=== PATIENT | female | born 1955 | race Caucasian/White ===

== ENCOUNTER 2020-11-06 01:57 | Inpatient (IN) | payer MEDICARE ==
[2020-11-06] MEDS ORDERED: Morphine 4 MG/ML VIAL ONE (02:14)
[2020-11-06 02:51] LABS: #Eosinphils 0.1 thou/uL (0.0-0.7); #Lymphocytes 1.9 thou/uL (1.20-3.40); #Monocytes 0.5 thou/uL (0.11-0.59); #Neutrophils 5.9 thou/uL (1.40-6.50); %Basophils 0.1 % (0.0-1.0); %Eosinophils 1.2 % (0.0-10.0); %Lymphocytes 21.9 % (21.0-51.0); %Monocytes 6.4 % (0.0-10.0); %Neutrophils 70.4 % (42.0-75.0); Mean Corpuscular HGB CONC 33.1 g/dL (32.0-36.0); Mean Corpuscular Hemoglobin 27.4 pg (27.0-31.0); Mean Corpuscular Volume 82.8 fL (78.0-98.0); Mean Platelet Volume 7.6 fL (7.4-10.4); Platelet Count 251 thou/uL (130-400); RBC Distribution Width 15.8 % (11.5-14.5); Red Blood Cell (RBC) Count 4.37 mill/uL (4.20-5.40); White Blood Cell (WBC) Count 8.4 thou/uL (4.8-10.8)
[2020-11-06 03:11] LABS: ALT (SGPT) 16 U/L (8-55); AST (SGOT) 11 U/L (5-34); Albumin 3.9 g/dL (3.4-4.8); Alkaline Phosphatase 77 U/L (40-110); Anion Gap 16 mmol/L (10-20); BUN (Urea Nitrogen) 19 mg/dL (9.8-20.1); Bilirubin, Total 0.6 mg/dL (0.2-1.2); CK (CPK) 39 U/L (29-168); Calc. Creatinine Clearance 0 mL/min (70-130); Calcium 9.4 mg/dL (7.8-10.44); Carbon Dioxide 20 mmol/L (23-31); Chloride 103 mmol/L (98-107); Glucose 194 mg/dL (80-115); Lipase 10 U/L (8-78); Potassium 3.1 mmol/L (3.5-5.1); Protein, Total 6.9 g/dL (5.8-8.1); Sodium 136 mmol/L (136-145)
[2020-11-06 03:33] LABS: CKMB 1.8 ng/mL (0-6.6)
[2020-11-06 07:06] LABS: Troponin I 0.281 ng/mL (< 0.028)
[2020-11-06] MEDS ORDERED: Guaifenesin DM 100-10/5 ML UDCUP PO PRN (08:46)
[2020-11-06] MEDS ORDERED: Ondansetron PF 4 MG/2 ML Vial IVP PRN (08:46)
[2020-11-06] MEDS ORDERED: Dextrose 5% in Water 1,000 ML IV PRN (08:46)
[2020-11-06] MEDS ORDERED: Dextrose 50% Abboject 50 ML SYRINGE SLOW IVP PRN (08:46)
[2020-11-06] MEDS ORDERED: HumaLOG 300 UNITS/3 ML VIAL SC PRN ×2 (08:46)
[2020-11-06] MEDS ORDERED: Senokot S 8.6-50 MG TAB PO PRN (08:46)
[2020-11-06] MEDS ORDERED: Sodium Chloride 0.9% 1,000 ML IV SCH (08:46)
[2020-11-06] MEDS ORDERED: Aspirin 325 MG TAB PO SCH (08:46)
[2020-11-06] MEDS ORDERED: Calcium Carbonate 500 MG ChewTAB PO PRN (08:46)
[2020-11-06] MEDS ORDERED: Bisacodyl 10 MG SUPP PR PRN (08:46)
[2020-11-06] MEDS ORDERED: Ketorolac Tromethamine 30 MG/ML VIAL IVP PRN (08:46)
[2020-11-06] MEDS ORDERED: Iopamidol-370 76% 500 ML 1 ML ONE (09:20)
[2020-11-06] MEDS: NIFEdipine XL 30 MG TAB PO SCH (09:43)
[2020-11-06] MEDS: Pantoprazole 40 MG VIAL IVP SCH ×2 (09:43→20:21)
[2020-11-06] MEDS: Gabapentin 300 MG CAP PO SCH ×2 (09:44→20:18)
[2020-11-06 09:59] LABS: Hemoglobin A1c 6.3 % (4.0-6.0)
[2020-11-06] MEDS: Acetaminophen 325 MG TAB PO PRN ×2 (10:01→20:21)
[2020-11-06] MEDS: Enoxaparin Sodium 120 MG/0.8 ML SYRINGE SC SCH ×2 (10:04→20:22)
[2020-11-06 10:15] LABS: SARS-CoV-2 NAA Rapid Test Not Detected (NotDetected)
[2020-11-06] MEDS ORDERED: Potassium Chloride 20 MEQ TAB PO SCH (12:00)
[2020-11-06] MEDS: Lisinopril 10 MG TAB PO SCH (14:12)
[2020-11-06] MEDS: Nitroglycerin 2% Ointment 1 INCH/1 GM Packet TOP SCH ×2 (14:13→22:40)
[2020-11-06] MEDS: Rosuvastatin 20 MG TAB PO SCH (20:18)
[2020-11-06] MEDS: Montelukast Sodium 10 mg Tablet PO SCH (20:18)
[2020-11-06] MEDS: diphenhydrAMINE 25 MG CAP PO PRN (22:40)
[2020-11-07] MEDS: Acetaminophen 325 MG TAB PO PRN ×3 (04:11→21:20)
[2020-11-07 05:51] LABS: #Basophils 0.1 thou/uL (0.0-0.2); #Eosinphils 0.1 thou/uL (0.0-0.7); #Lymphocytes 1.9 thou/uL (1.20-3.40); #Monocytes 0.4 thou/uL (0.11-0.59); #Neutrophils 5.1 thou/uL (1.40-6.50); %Basophils 0.7 % (0.0-1.0); %Eosinophils 1.9 % (0.0-10.0); %Lymphocytes 25.4 % (21.0-51.0); %Monocytes 4.9 % (0.0-10.0); %Neutrophils 67.1 % (42.0-75.0); Mean Corpuscular HGB CONC 33.1 g/dL (32.0-36.0); Mean Corpuscular Hemoglobin 27.6 pg (27.0-31.0); Mean Corpuscular Volume 83.3 fL (78.0-98.0); Mean Platelet Volume 8.2 fL (7.4-10.4); Platelet Count 227 thou/uL (130-400); RBC Distribution Width 15.7 % (11.5-14.5); Red Blood Cell (RBC) Count 3.99 mill/uL (4.20-5.40); White Blood Cell (WBC) Count 7.6 thou/uL (4.8-10.8)
[2020-11-07 06:19] LABS: Anion Gap 11 mmol/L (10-20); BUN (Urea Nitrogen) 11 mg/dL (9.8-20.1); Calc. Creatinine Clearance 192 mL/min (70-130); Calcium 9.3 mg/dL (7.8-10.44); Carbon Dioxide 26 mmol/L (23-31); Cardiac Risk 5.2 (Less than 4.5); Chloride 106 mmol/L (98-107); Cholesterol 125 mg/dl (< 200 Desired); Glucose 168 mg/dL (80-115); HDL Cholesterol 24 mg/dL (>60 Neg Risk); LDL Cholesterol, Calculated 67 mg/dL; Potassium 3.8 mmol/L (3.5-5.1); Sodium 139 mmol/L (136-145); Triglycerides 168 mg/dL (Less than 150)
[2020-11-07] MEDS: Nitroglycerin 2% Ointment 1 INCH/1 GM Packet TOP SCH ×3 (06:45→21:21)
[2020-11-07 06:49] LABS: CKMB 118.1 ng/mL (0-6.6)
[2020-11-07] MEDS ORDERED: Communication Order-Pharmacy FS SCH (08:30)
[2020-11-07] MEDS: NIFEdipine XL 30 MG TAB PO SCH (08:44)
[2020-11-07] MEDS: Aspirin Chewable 81 MG TAB PO SCH (08:56)
[2020-11-07] MEDS: Gabapentin 300 MG CAP PO SCH ×2 (08:57→20:38)
[2020-11-07] MEDS: Lisinopril 10 MG TAB PO SCH (08:57)
[2020-11-07] MEDS: Pantoprazole 40 MG VIAL IVP SCH ×2 (08:58→20:40)
[2020-11-07] MEDS ORDERED: Midazolam HCl 2 mg/2 ml Vial ONE ×2 (09:13→09:33)
[2020-11-07] MEDS ORDERED: Fentanyl 100 MCG/2 ML VIAL ONE ×5 (09:13→14:51)
[2020-11-07] MEDS ORDERED: Heparin 10,000 UNITS/ 10 ML VIAL ONE ×2 (09:41→09:59)
[2020-11-07] MEDS ORDERED: Nitroglycerin 100MG/250ML BOT 250 ML ONE (09:59)
[2020-11-07] MEDS ORDERED: TICAGRELOR 90 MG TABLET ONE (10:32)
[2020-11-07] MEDS ORDERED: TICAGRELOR 90 MG TABLET PO SCH (11:00)
[2020-11-07] MEDS ORDERED: Fentanyl 100 MCG/2 ML VIAL SLOW IVP PRN (11:56)
[2020-11-07] MEDS ORDERED: Nitroglycerin 2% Ointment 1 INCH/1 GM Packet ONE (12:29)
[2020-11-07] MEDS ORDERED: Iopamidol 370 76% 100 ML VIAL ONE (15:06)
[2020-11-07] MEDS ORDERED: Iopamidol 370 76% 50 ML VIAL FS ONE (15:06)
[2020-11-07] MEDS: diphenhydrAMINE 25 MG CAP PO PRN ×2 (15:35→20:38)
[2020-11-07] MEDS ORDERED: Ketorolac Tromethamine 30 MG/ML VIAL IVP SCH (18:15)
[2020-11-07] MEDS: Metoprolol Tartrate 25 MG TAB PO SCH (20:38)
[2020-11-07] MEDS: Rosuvastatin 20 MG TAB PO SCH (20:38)
[2020-11-07] MEDS: Montelukast Sodium 10 mg Tablet PO SCH (20:38)
[2020-11-07] MEDS: TICAGRELOR 90 MG TABLET PO SCH (21:21)
[2020-11-08] MEDS: Acetaminophen 325 MG TAB PO PRN ×2 (02:07→08:46)
[2020-11-08 05:10] LABS: #Eosinphils 0.1 thou/uL (0.0-0.7); #Lymphocytes 1.6 thou/uL (1.20-3.40); #Monocytes 0.3 thou/uL (0.11-0.59); #Neutrophils 5.2 thou/uL (1.40-6.50); %Basophils 0.2 % (0.0-1.0); %Eosinophils 1.9 % (0.0-10.0); %Lymphocytes 21.4 % (21.0-51.0); %Monocytes 4.6 % (0.0-10.0); %Neutrophils 71.9 % (42.0-75.0); Hemoglobin 11.7 g/dL (12.0-16.0); Mean Corpuscular HGB CONC 33.1 g/dL (32.0-36.0); Mean Corpuscular Hemoglobin 27.7 pg (27.0-31.0); Mean Corpuscular Volume 83.6 fL (78.0-98.0); Mean Platelet Volume 7.8 fL (7.4-10.4); Platelet Count 240 thou/uL (130-400); RBC Distribution Width 15.8 % (11.5-14.5); Red Blood Cell (RBC) Count 4.23 mill/uL (4.20-5.40); White Blood Cell (WBC) Count 7.2 thou/uL (4.8-10.8)
[2020-11-08 05:32] LABS: ALT (SGPT) 19 U/L (8-55); AST (SGOT) 46 U/L (5-34); Albumin 3.7 g/dL (3.4-4.8); Alkaline Phosphatase 72 U/L (40-110); Anion Gap 11 mmol/L (10-20); BUN (Urea Nitrogen) 9 mg/dL (9.8-20.1); Bilirubin, Total 0.6 mg/dL (0.2-1.2); Calc. Creatinine Clearance 169 mL/min (70-130); Calcium 9.8 mg/dL (7.8-10.44); Carbon Dioxide 24 mmol/L (23-31); Chloride 106 mmol/L (98-107); Globulin 2.8 g/dL (2.4-3.5); Glucose 184 mg/dL (80-115); Potassium 3.6 mmol/L (3.5-5.1); Protein, Total 6.5 g/dL (5.8-8.1); Sodium 137 mmol/L (136-145)
[2020-11-08] MEDS: Nitroglycerin 2% Ointment 1 INCH/1 GM Packet TOP SCH ×2 (05:49→13:49)
[2020-11-08] MEDS: Metoprolol Tartrate 25 MG TAB PO SCH ×2 (08:45→20:48)
[2020-11-08] MEDS: TICAGRELOR 90 MG TABLET PO SCH ×2 (08:45→20:48)
[2020-11-08] MEDS: Gabapentin 300 MG CAP PO SCH ×2 (08:45→22:17)
[2020-11-08] MEDS: Pantoprazole 40 MG VIAL IVP SCH ×2 (08:46→20:48)
[2020-11-08] MEDS: Lisinopril 10 MG TAB PO SCH (08:46)
[2020-11-08] MEDS: Aspirin Chewable 81 MG TAB PO SCH (08:46)
[2020-11-08] MEDS: Carvedilol 3.125 MG TAB PO SCH ×2 (10:20→17:47)
[2020-11-08] MEDS: Loperamide HCl 1 MG/7.5 ML UDCUP PO PRN (13:49)
[2020-11-08 14:55] VITALS: BMI 48.9
[2020-11-08] MEDS: Acetaminophen/Codeine 30-300mg Tablet PO PRN (20:46)
[2020-11-08] MEDS: Montelukast Sodium 10 mg Tablet PO SCH (20:46)
[2020-11-08] MEDS: Rosuvastatin 20 MG TAB PO SCH (20:48)
[2020-11-08] MEDS ORDERED: Gabapentin 300 MG CAP PO SCH (21:30)
[2020-11-08] MEDS ORDERED: Melatonin 3 MG TAB PO SCH (22:45)
[2020-11-08] MEDS ORDERED: Nitroglycerin 2% Ointment 1 INCH/1 GM Packet TOP SCH (23:59)
[2020-11-08] MEDS ORDERED: Morphine 2 MG/ML VIAL SLOW IVP SCH (23:59)
[2020-11-09 04:56] LABS: #Eosinphils 0.2 thou/uL (0.0-0.7); #Lymphocytes 1.6 thou/uL (1.20-3.40); #Monocytes 0.4 thou/uL (0.11-0.59); #Neutrophils 5.8 thou/uL (1.40-6.50); %Basophils 0.5 % (0.0-1.0); %Eosinophils 1.9 % (0.0-10.0); %Lymphocytes 20.4 % (21.0-51.0); %Monocytes 4.8 % (0.0-10.0); %Neutrophils 72.4 % (42.0-75.0); Mean Corpuscular HGB CONC 33.8 g/dL (32.0-36.0); Mean Corpuscular Hemoglobin 28.2 pg (27.0-31.0); Mean Corpuscular Volume 83.5 fL (78.0-98.0); Mean Platelet Volume 8.1 fL (7.4-10.4); Platelet Count 225 thou/uL (130-400); RBC Distribution Width 15.6 % (11.5-14.5)
[2020-11-09 05:21] LABS: Anion Gap 12 mmol/L (10-20); BUN (Urea Nitrogen) 10 mg/dL (9.8-20.1); Calc. Creatinine Clearance 188 mL/min (70-130); Calcium 9.5 mg/dL (7.8-10.44); Carbon Dioxide 24 mmol/L (23-31); Chloride 107 mmol/L (98-107); Glucose 126 mg/dL (80-115); Potassium 3.8 mmol/L (3.5-5.1); Sodium 139 mmol/L (136-145)
[2020-11-09] MEDS: Acetaminophen 325 MG TAB PO PRN ×2 (07:51→19:25)
[2020-11-09] MEDS: Pantoprazole 40 MG VIAL IVP SCH ×2 (07:51→20:50)
[2020-11-09] MEDS: Carvedilol 3.125 MG TAB PO SCH ×2 (07:52→17:40)
[2020-11-09] MEDS: Gabapentin 300 MG CAP PO SCH ×2 (07:52→20:49)
[2020-11-09] MEDS: Lisinopril 10 MG TAB PO SCH (07:52)
[2020-11-09] MEDS: Metoprolol Tartrate 25 MG TAB PO SCH (07:53)
[2020-11-09] MEDS: TICAGRELOR 90 MG TABLET PO SCH (07:53)
[2020-11-09] MEDS: Aspirin Chewable 81 MG TAB PO SCH (07:55)
[2020-11-09] MEDS: ALPRAZolam 0.25 MG TAB PO PRN ×2 (10:38→21:05)
[2020-11-09] MEDS: Acetaminophen/Codeine 30-300mg Tablet PO PRN (12:23)
[2020-11-09] MEDS: Loperamide HCl 1 MG/7.5 ML UDCUP PO PRN (12:24)
[2020-11-09] MEDS ORDERED: Clopidogrel Bisulfate 300 MG TAB PO SCH (16:00)
[2020-11-09] MEDS: Rosuvastatin 20 MG TAB PO SCH (20:49)
[2020-11-09] MEDS: Montelukast Sodium 10 mg Tablet PO SCH (20:49)
[2020-11-09] MEDS: diphenhydrAMINE 25 MG CAP PO PRN (22:15)
[2020-11-10] MEDS: Acetaminophen 325 MG TAB PO PRN ×2 (01:03→12:54)
[2020-11-10] MEDS: Aspirin Chewable 81 MG TAB PO SCH (07:41)
[2020-11-10] MEDS: Pantoprazole 40 MG VIAL IVP SCH (07:41)
[2020-11-10] MEDS: Gabapentin 300 MG CAP PO SCH (07:41)
[2020-11-10] MEDS: Acetaminophen/Codeine 30-300mg Tablet PO PRN (07:42)
[2020-11-10] MEDS: Lisinopril 10 MG TAB PO SCH (07:43)
[2020-11-10] MEDS: Carvedilol 3.125 MG TAB PO SCH ×2 (07:43→16:52)
[2020-11-10] MEDS ORDERED: Clopidogrel Bisulfate 75 MG TAB PO SCH (09:00)
[2020-11-10] MEDS: ALPRAZolam 0.25 MG TAB PO PRN (12:54)
[2020-11-10 16:38] VITALS: BP 146/77; TEMP 98.2
[2020-11-10] MEDS ORDERED: Lisinopril 10 MG TAB PO SCH (21:00)
== END 2020-11-10 17:40 | disposition home or self-care (01) | DRG 247 ==
LOC: ERS 01:57 → 2SW 04:55 → OBSVTOIN 11-07 08:47
PROVIDERS: ADMIT Internal Medicine; ATTEND Internal Medicine
PROC: 027034Z Dilation of Coronary Artery, One Artery with Drug-eluting Intraluminal Device, Percutaneous Approach (ICD-10-PCS; principal; 2020-11-07)
PROC: 4A023N7 Measurement of Cardiac Sampling and Pressure, Left Heart, Percutaneous Approach (ICD-10-PCS; 2020-11-07)
PROC: B2111ZZ Fluoroscopy of Multiple Coronary Arteries using Low Osmolar Contrast (ICD-10-PCS; 2020-11-07)
PROC: B2151ZZ Fluoroscopy of Left Heart using Low Osmolar Contrast (ICD-10-PCS; 2020-11-07)
DX: I21.4 Non-ST elevation (NSTEMI) myocardial infarction (principal); Z68.42 Body mass index [BMI] 45.0-49.9, adult; I42.9 Cardiomyopathy, unspecified; I10 Essential (primary) hypertension; E78.5 Hyperlipidemia, unspecified; J44.9 Chronic obstructive pulmonary disease, unspecified; K21.9 Gastro-esophageal reflux disease without esophagitis; E87.6 Hypokalemia; I25.10 Atherosclerotic heart disease of native coronary artery without angina pectoris; J45.20 Mild intermittent asthma, uncomplicated; R51.9 Headache, unspecified; E66.01 Morbid (severe) obesity due to excess calories; Z20.822 Contact with and (suspected) exposure to COVID-19; E11.40 Type 2 diabetes mellitus with diabetic neuropathy, unspecified; Z98.51 Tubal ligation status; Z90.89 Acquired absence of other organs; Z79.82 Long term (current) use of aspirin; Z88.8 Allergy status to other drugs, medicaments and biological substances; Z87.891 Personal history of nicotine dependence; Z88.7 Allergy status to serum and vaccine; Z91.012 Allergy to eggs
CPT/HCPCS: 36415; 36416; 71045; 71275; 74174; 76705; 76942; 80048; 80053; 80061; 82550; 82553; 83036; 83690; 84484; 85025; 85347; 92941; 93005; 93010; 93306; 93458; 93798; 94640; 94760; 96372; 96374; 96375; 96376; 99152; 99153; C1874; C9113; C9606; G0378; J1644; J1650; J1885; J2250; J2270; J2405; J3010; J7620; Q0163; Q9967; U0002

== ENCOUNTER 2022-01-11 09:32 | Inpatient (IN) | payer MEDICARE ==
[2022-01-11] MEDS ORDERED: Iopamidol 370 76% 100 ML VIAL ONE (09:35)
[2022-01-11] MEDS ORDERED: Aspirin Chewable 81 MG TAB ONE (10:08)
[2022-01-11] MEDS ORDERED: Nitroglycerin 2% Ointment 1 INCH/1 GM Packet ONE (10:08)
[2022-01-11 10:35] LABS: #Eosinphils 0.3 thou/uL (0.0-0.7); #Lymphocytes 1.6 thou/uL (1.20-3.40); #Monocytes 0.4 thou/uL (0.11-0.59); #Neutrophils 4.2 thou/uL (1.40-6.50); %Basophils 0.5 % (0.0-1.0); %Eosinophils 5.3 % (0.0-10.0); %Lymphocytes 24.2 % (21.0-51.0); %Monocytes 5.4 % (0.0-10.0); %Neutrophils 64.5 % (42.0-75.0); Hemoglobin 12.1 g/dL (12.0-16.0); Mean Corpuscular HGB CONC 31.9 g/dL (32.0-36.0); Mean Corpuscular Hemoglobin 27.8 pg (27.0-31.0); Mean Corpuscular Volume 87.2 fL (78.0-98.0); Mean Platelet Volume 7.4 fL (7.4-10.4); Platelet Count 225 thou/uL (130-400); RBC Distribution Width 14.7 % (11.5-14.5); Red Blood Cell (RBC) Count 4.34 mill/uL (4.20-5.40); White Blood Cell (WBC) Count 6.4 thou/uL (4.8-10.8)
[2022-01-11 11:06] LABS: ALT (SGPT) 11 U/L (8-55); AST (SGOT) 11 U/L (5-34); Albumin 3.9 g/dL (3.4-4.8); Alkaline Phosphatase 71 U/L (40-110); Anion Gap 12 mmol/L (10-20); BUN (Urea Nitrogen) 10 mg/dL (9.8-20.1); Bilirubin, Total 0.8 mg/dL (0.2-1.2); CK (CPK) 27 U/L (29-168); Calc. Creatinine Clearance 0 mL/min (70-130); Calcium 9.7 mg/dL (7.8-10.44); Carbon Dioxide 25 mmol/L (23-31); Chloride 103 mmol/L (98-107); Globulin 2.7 g/dL (2.4-3.5); Glucose 165 mg/dL (80-115); Lipase 12 U/L (8-78); Potassium 4.1 mmol/L (3.5-5.1); Protein, Total 6.6 g/dL (5.8-8.1); Sodium 136 mmol/L (136-145)
[2022-01-11] MEDS ORDERED: Nitroglycerin 50 MG/250 ML BOT 250 ML ONE (12:07)
[2022-01-11] MEDS ORDERED: Nitroglycerin 25 mg/250 ml BOT IV SCH (12:15)
[2022-01-11] MEDS ORDERED: Communication Order-Pharmacy FS SCH (12:15)
[2022-01-11] MEDS ORDERED: Senokot S 8.6-50 MG TAB PO PRN (12:23)
[2022-01-11] MEDS ORDERED: Dextrose 5% in Water 1,000 ML IV PRN (12:27)
[2022-01-11] MEDS ORDERED: Insulin Regular 300 UNITS/3 ML VIAL SC PRN ×2 (12:27)
[2022-01-11] MEDS ORDERED: Dextrose 50% Abboject 50 ML SYRINGE SLOW IVP PRN (12:27)
[2022-01-11] MEDS ORDERED: Fentanyl 100 MCG/2 ML VIAL ONE (14:16)
[2022-01-11] MEDS ORDERED: Midazolam HCl 2 mg/2 ml Vial ONE (14:16)
[2022-01-11] MEDS ORDERED: Nitroglycerin 0.4 MG TAB (25 Tab Bottle) SL PRN (15:09)
[2022-01-11] MEDS ORDERED: Sodium Chloride 0.9% 200 ML IV PRN (15:09)
[2022-01-11 16:28] VITALS: BMI 50.6
[2022-01-11] MEDS: Icosapent Ethyl 1 GM CAPSULE PO SCH (17:07)
[2022-01-11] MEDS ORDERED: Rosuvastatin 20 MG TAB PO SCH (21:00)
[2022-01-11] MEDS ORDERED: Clopidogrel Bisulfate 75 MG TAB PO SCH (21:00)
[2022-01-11] MEDS ORDERED: Montelukast Sodium 10 mg Tablet PO SCH (21:00)
[2022-01-11] MEDS ORDERED: Lisinopril 20 MG TAB PO SCH (21:00)
[2022-01-11] MEDS: Gabapentin 300 MG CAP PO SCH (21:12)
[2022-01-11] MEDS: Carvedilol 25 MG TAB PO SCH (21:13)
[2022-01-11] MEDS: Acetaminophen/Codeine 30-300mg Tablet PO PRN (21:14)
[2022-01-12] MEDS: Acetaminophen/Codeine 30-300mg Tablet PO PRN ×2 (02:46→11:49)
[2022-01-12] MEDS ORDERED: glyBURIDE 5 MG TAB PO SCH (09:00)
[2022-01-12] MEDS ORDERED: DULoxetine 60 MG CAP PO SCH (09:00)
[2022-01-12] MEDS ORDERED: Aspirin Chewable 81 MG TAB PO SCH (09:00)
[2022-01-12] MEDS ORDERED: Amlodipine 5 MG TAB PO SCH ×2 (09:00)
[2022-01-12] MEDS: Gabapentin 300 MG CAP PO SCH (09:04)
[2022-01-12] MEDS: Carvedilol 25 MG TAB PO SCH (09:06)
[2022-01-12] MEDS: Icosapent Ethyl 1 GM CAPSULE PO SCH (09:07)
[2022-01-12 12:03] VITALS: BP 129/87; TEMP 97.9
== END 2022-01-12 13:06 | disposition home or self-care (01) | DRG 287 ==
LOC: ERS 09:32 → ERHOLD 11:58 → SURG A 13:56 → 2NO 15:29
PROVIDERS: ADMIT Internal Medicine; ATTEND Internal Medicine
PROC: 4A023N7 Measurement of Cardiac Sampling and Pressure, Left Heart, Percutaneous Approach (ICD-10-PCS; principal; 2022-01-11)
PROC: B2151ZZ Fluoroscopy of Left Heart using Low Osmolar Contrast (ICD-10-PCS; 2022-01-11)
PROC: B2111ZZ Fluoroscopy of Multiple Coronary Arteries using Low Osmolar Contrast (ICD-10-PCS; 2022-01-11)
DX: T82.897A Other specified complication of cardiac prosthetic devices, implants and grafts, initial encounter (principal); Z68.43 Body mass index [BMI] 50.0-59.9, adult; I25.110 Atherosclerotic heart disease of native coronary artery with unstable angina pectoris; Y83.2 Surgical operation with anastomosis, bypass or graft as the cause of abnormal reaction of the patient, or of later complication, without mention of misadventure at the time of the procedure; Z20.822 Contact with and (suspected) exposure to COVID-19; I10 Essential (primary) hypertension; J44.9 Chronic obstructive pulmonary disease, unspecified; F32.A Depression, unspecified; K21.9 Gastro-esophageal reflux disease without esophagitis; E66.01 Morbid (severe) obesity due to excess calories; M54.9 Dorsalgia, unspecified; G89.29 Other chronic pain; J45.20 Mild intermittent asthma, uncomplicated; E11.40 Type 2 diabetes mellitus with diabetic neuropathy, unspecified; I25.2 Old myocardial infarction; Z98.51 Tubal ligation status; Z88.7 Allergy status to serum and vaccine; Z95.5 Presence of coronary angioplasty implant and graft; Z91.012 Allergy to eggs; Z91.048 Other nonmedicinal substance allergy status; Z88.5 Allergy status to narcotic agent; Z91.040 Latex allergy status; Z79.899 Other long term (current) drug therapy; Z79.82 Long term (current) use of aspirin; Z79.4 Long term (current) use of insulin; Z87.891 Personal history of nicotine dependence; Z95.1 Presence of aortocoronary bypass graft
CPT/HCPCS: 36415; 36416; 71045; 71275; 80053; 82550; 83690; 83880; 84484; 85025; 85379; 93005; 93458; 99152; 99153; J2250; J3010; Q9967

== ENCOUNTER 2022-05-10 13:42 | Outpatient (CLI) | payer MEDICARE | END 2022-05-10 13:43 | disposition home or self-care (01) | LOC: DTY/OP 13:42 | PROVIDERS: ATTEND Specialist | DX: E66.01 Morbid (severe) obesity due to excess calories (principal) | CPT/HCPCS: 97802 ==

== ENCOUNTER 2022-05-16 12:13 | Outpatient (CLI) | payer MEDICARE | END 2022-05-16 12:14 | disposition home or self-care (01) | LOC: LABBT 12:13 | PROVIDERS: ATTEND Specialist | DX: Z20.822 Contact with and (suspected) exposure to COVID-19 (principal) | CPT/HCPCS: 87811 ==

== ENCOUNTER 2022-05-18 08:41 | Outpatient (CLI) | payer MEDICARE | END 2022-05-18 08:42 | disposition home or self-care (01) | LOC: RAD 08:41 | PROVIDERS: ATTEND Specialist | DX: E66.01 Morbid (severe) obesity due to excess calories (principal) | CPT/HCPCS: 74246 ==

== ENCOUNTER 2022-11-20 14:15 | Inpatient (IN) | payer MEDICARE ==
[2022-11-30] MEDS ORDERED: Fentanyl 250 MCG/5 ML VIAL ONE (06:11)
[2022-11-30] MEDS ORDERED: cefOXitin 2 GM VIAL ONE ×2 (06:19→07:32)
[2022-11-30] MEDS ORDERED: Acetaminophen 500 MG TAB ONE (06:19)
[2022-11-30] MEDS ORDERED: Ketorolac Tromethamine 30 MG/ML VIAL ONE (06:19)
[2022-11-30] MEDS ORDERED: Heparin 5,000 UNITS/ML VIAL ONE (06:19)
[2022-11-30] MEDS ORDERED: Sodium Chloride 0.9% 0 ML ONE (06:19)
[2022-11-30] MEDS ORDERED: Scopolamine 1.5 mg/72 hour Patch ONE (06:19)
[2022-11-30] MEDS ORDERED: Bupivacaine/Epinephrine 0.25% 30 ML VIAL ONE (06:42)
[2022-11-30] MEDS ORDERED: Sodium Chloride 0.9% 100 ML ONE (07:32)
[2022-11-30] MEDS ORDERED: Rocuronium Bromide 10 MG/ML (10ML VIAL) ONE (07:40)
[2022-11-30] MEDS ORDERED: Dexamethasone 20 MG/5 ML VIAL ONE (07:40)
[2022-11-30] MEDS ORDERED: PROPOFOL 200 MG/20 ML VIAL ONE (07:40)
[2022-11-30] MEDS ORDERED: Succinylcholine Chloride 100 MG/5 ML SYRINGE FS ONE (07:40)
[2022-11-30] MEDS ORDERED: Ondansetron PF 4 MG/2 ML Vial ONE (07:40)
[2022-11-30] MEDS ORDERED: Lidocaine 1% PF 5 ML VIAL ONE (07:40)
[2022-11-30] MEDS ORDERED: ePHEDrine Sulfate 50 MG/10 ML VIAL ONE (07:40)
[2022-11-30] MEDS ORDERED: SUGAMMADEX SODIUM 200 MG/2 ML VIAL ONE (08:44)
[2022-11-30] MEDS ORDERED: Promethazine HCl 25 MG/ML VIAL IM PRN ×2 (10:12→11:42)
[2022-11-30] MEDS ORDERED: Ondansetron HCl/PF 4 MG/2 ML Vial IVP PRN (10:12)
[2022-11-30] MEDS ORDERED: fentaNYL 50 mcg/mL 1 mL Vial ONE ×4 (10:50→14:45)
[2022-11-30] MEDS ORDERED: Dextrose 5% in Water 1,000 ML IV PRN ×2 (11:42→14:50)
[2022-11-30] MEDS ORDERED: diphenhydrAMINE 50 MG/ML VIAL IVP PRN (11:42)
[2022-11-30] MEDS ORDERED: Morphine 2 MG/ML VIAL SLOW IVP PRN (11:42)
[2022-11-30] MEDS ORDERED: Dextrose 50% Abboject 50 ML SYRINGE SLOW IVP PRN ×2 (11:42→14:50)
[2022-11-30] MEDS ORDERED: Ipratropium/Albuterol 3 ML NEB NEB PRN (11:42)
[2022-11-30] MEDS ORDERED: hydrALAZINE 20 MG/ML VIAL SLOW IVP PRN (11:42)
[2022-11-30] MEDS ORDERED: Ipratropium Bromide 2.5 ml Neb NEB PRN (12:15)
[2022-11-30] MEDS ORDERED: HYDROmorphone 0.5 MG/0.5 ML SYRINGE ONE (12:43)
[2022-11-30] MEDS ORDERED: Insulin Regular 300 UNITS/3 ML VIAL SC PRN (14:50)
[2022-11-30 16:03] VITALS: BMI 48.2
[2022-11-30] MEDS: Morphine 4 MG/ML VIAL SLOW IVP PRN ×2 (16:17→18:01)
[2022-11-30] MEDS: Ondansetron PF 4 MG/2 ML Vial IVP PRN (16:18)
[2022-11-30] MEDS: Ketorolac Tromethamine 30 MG/ML VIAL IVP SCH ×3 (16:37→23:05)
[2022-11-30] MEDS: 1/2 NS w/KCL 20 mEq 1,000 ML IV SCH ×2 (16:37→18:01)
[2022-11-30] MEDS ORDERED: Montelukast Sodium 10 mg Tablet PO SCH (21:00)
[2022-11-30] MEDS ORDERED: Rosuvastatin 20 MG TAB PO SCH (21:00)
[2022-11-30] MEDS: Carvedilol 6.25 MG TAB PO SCH (21:01)
[2022-11-30] MEDS: Gabapentin 400 MG CAP PO SCH (21:02)
[2022-11-30] MEDS: Lisinopril 20 MG TAB PO SCH (21:02)
[2022-11-30] MEDS: Acetaminophen W/ Codeine 5 ML UDCUP PO PRN (21:02)
[2022-12-01] MEDS: Morphine 4 MG/ML VIAL SLOW IVP PRN (02:30)
[2022-12-01] MEDS: 1/2 NS w/KCL 20 mEq 1,000 ML IV SCH ×2 (03:54→13:52)
[2022-12-01] MEDS: Ondansetron PF 4 MG/2 ML Vial IVP PRN (06:01)
[2022-12-01] MEDS: Ketorolac Tromethamine 30 MG/ML VIAL IVP SCH ×2 (06:01→11:56)
[2022-12-01] MEDS ORDERED: glyBURIDE 5 MG TAB PO SCH (07:30)
[2022-12-01 07:31] LABS: #Lymphocytes 0.8 thou/uL (1.20-3.40); #Monocytes 0.5 thou/uL (0.11-0.59); #Neutrophils 8.1 thou/uL (1.40-6.50); %Basophils 0.1 % (0.0-1.0); %Eosinophils 0.1 % (0.0-10.0); %Lymphocytes 8.9 % (21.0-51.0); %Monocytes 5.3 % (0.0-10.0); %Neutrophils 85.7 % (42.0-75.0); Hemoglobin 12.8 g/dL (12.0-16.0); Mean Corpuscular HGB CONC 33.7 g/dL (32.0-36.0); Mean Platelet Volume 7.4 fL (7.4-10.4); Platelet Count 186 10x3/uL (130-400); Red Blood Cell (RBC) Count 4.42 mill/uL (4.20-5.40); White Blood Cell (WBC) Count 9.5 10x3/uL (4.8-10.8)
[2022-12-01 07:55] LABS: Anion Gap 13 mmol/L (10-20); BUN (Urea Nitrogen) 9 mg/dL (9.8-20.1); Calc. Creatinine Clearance 175 mL/min (70-130); Calcium 9.9 mg/dL (7.8-10.44); Carbon Dioxide 23 mmol/L (23-31); Chloride 106 mmol/L (98-107); Estimated GFR 96; Glucose 126 mg/dL (80-115); Potassium 4.5 mmol/L (3.5-5.1); Sodium 137 mmol/L (136-145)
[2022-12-01] MEDS ORDERED: Amlodipine 5 MG TAB PO SCH (09:00)
[2022-12-01] MEDS ORDERED: DULoxetine 60 MG CAP PO SCH (09:00)
[2022-12-01] MEDS ORDERED: Pantoprazole 40 MG VIAL IVP SCH (09:00)
[2022-12-01] MEDS: Carvedilol 6.25 MG TAB PO SCH (09:31)
[2022-12-01] MEDS: Acetaminophen W/ Codeine 5 ML UDCUP PO PRN ×2 (09:31→13:49)
[2022-12-01] MEDS: Lisinopril 20 MG TAB PO SCH (10:21)
[2022-12-01] MEDS: Gabapentin 400 MG CAP PO SCH (10:21)
[2022-12-01 11:42] VITALS: BP 111/59; TEMP 97.8
== END 2022-12-01 15:35 | disposition home or self-care (01) | DRG 621 ==
LOC: SURG A 11-30 05:55
PROVIDERS: ADMIT Specialist; ATTEND Specialist
PROC: 0D164ZA Bypass Stomach to Jejunum, Percutaneous Endoscopic Approach (ICD-10-PCS; principal; 2022-11-30)
DX: E66.01 Morbid (severe) obesity due to excess calories (principal); Z68.42 Body mass index [BMI] 45.0-49.9, adult; Z91.09 Other allergy status, other than to drugs and biological substances; Z88.6 Allergy status to analgesic agent; Z91.040 Latex allergy status; Z91.012 Allergy to eggs; Z88.7 Allergy status to serum and vaccine; I25.2 Old myocardial infarction; Z90.89 Acquired absence of other organs; K21.9 Gastro-esophageal reflux disease without esophagitis; E03.9 Hypothyroidism, unspecified
CPT/HCPCS: 36415; 36416; 80048; 85025; A4649; C1889; C9113; J0694; J1100; J1200; J1644; J1650; J1815; J1885; J2270; J2405; J2704; J3010; J3480; J3490